=== PATIENT | female | born 1985 | race Two or more races ===

== ENCOUNTER 2019-01-31 10:14 | Emergency (ER) | payer MEDICAID ==
[~2019-01-31] VITALS: Ht 170.2 cm; Wt 69.0 kg
[2019-01-31 10:30] VITALS: BP 97/48
[2019-01-31] MEDS ORDERED: ACETAMINOPHEN 500MG TABLET PO ONE (11:15)
== END 2019-01-31 12:22 | disposition home or self-care (01) ==
LOC: ER 10:14
DX: S83.421A Sprain of lateral collateral ligament of right knee, initial encounter (principal); W18.31XA Fall on same level due to stepping on an object, initial encounter; Y93.89 Activity, other specified; Y92.89 Other specified places as the place of occurrence of the external cause; Y99.8 Other external cause status
CPT/HCPCS: 73560; 99283; L1830